=== PATIENT | female | born 1985 | race Caucasian/White ===

== ENCOUNTER → 2017-04-16 | Outpatient (REF) | payer OTHER ==
[~2017-04-16] MED LIST: /AUGM875TA OR; /AUGM875TA PO; FERR325T PO; IBUP600T PO; KLONIPIN PO; MAGNESIUM HYDROXIDE PO; MOM30SS FT; MULTIVIT PO; PAROXETINE PO; PERCOCET PO; TYLENOL #3 OR; lanolin cream TOP; motrin PO
== END ==
LOC: M LAB REF 16:45
PROVIDERS: ATTEND Physician Assistant
DX: J02.9 Acute pharyngitis, unspecified (principal)

== ENCOUNTER → 2017-04-28 | Outpatient (REF) | payer OTHER | LOC: M LAB REF 17:10 | PROVIDERS: ATTEND Physician Assistant | DX: J02.9 Acute pharyngitis, unspecified (principal) ==

== ENCOUNTER → 2018-05-13 | Outpatient (REF) | payer OTHER ==
[2018-05-15 14:32] LABS: HPV HYBRID CAPTURE II Negative (Negative)
== END ==
LOC: M LAB REF 17:47
DX: Z12.4 Encounter for screening for malignant neoplasm of cervix (principal)
CPT/HCPCS: 88142

== ENCOUNTER → 2019-10-31 | Outpatient (CLI) | payer OTHER, SELFPAY ==
[~2019-10-31] MED LIST changes: +OXYC1TAB23 PO; -PERCOCET PO
[2019-10-31 18:54] LABS: HEMATOCRIT 44.6 % (36.0-47.0); HEMOGLOBIN 14.8 g/dl (12.0-15.5); MEAN CORPUSCULAR HGB CONC 33.2 g/dl (32.0-36.5); MEAN CORPUSCULAR VOLUME 84.5 fl (80.0-96.0); PLATELET COUNT, AUTOMATED 356 10^3/uL (150-450); RED BLOOD COUNT 5.28 10^6/uL (4.00-5.40)
[2019-10-31 18:58] LABS: WHITE BLOOD COUNT 13.5 10^3/uL (4.0-10.0)
[2019-10-31 19:27] LABS: ATYPICAL LYMPH 14 % (0-5); BASOPHILS 1 % (0-1); EOSINOPHILS 1 % (0-3); LYMPHOCYTES 31 % (16-44); MONOCYTES 7 % (0-5); NEUTROPHILS 46 % (28-66)
[2019-10-31 19:28] LABS: MICROCYTOSIS 1+; PLATELET ESTIMATE NORMAL (NORMAL)
== END ==
LOC: M LAB 18:37
PROVIDERS: ATTEND Physician Assistant
DX: L03.211 Cellulitis of face (principal)

== ENCOUNTER → 2025-07-24 | Outpatient (CLI) | payer MEDICAID ==
[2025-07-24 12:23] LABS: CALCIUM LEVEL 9.3 MG/DL (8.5-10.1); CARBON DIOXIDE LEVEL 26 MMOL/L (20-31); CHLORIDE LEVEL 107 MMOL/L (98-107); CREATININE FOR GFR 0.69 MG/DL (0.55-1.30); GLOMERULAR FILTRATION RATE > 90.0 (>60); POTASSIUM SERUM 4.5 MMOL/L (3.5-5.1); SODIUM LEVEL 142 MMOL/L (136-145)
== END ==
LOC: M LAB 09:59
PROVIDERS: ATTEND Physician Assistant
DX: L65.9 Nonscarring hair loss, unspecified (principal)